=== PATIENT | male | born 1935 | race Asian ===

== ENCOUNTER 2019-09-16 05:07 | Day surgery (SDC) | payer OTHER ==
[2019-09-16 11:43] VITALS: BMI 23.6
--- NOTE | 2019-09-16 12:28 | HP ---
History & Physical Update - History History: No Change - Physical Physical: No Change - Assessment Assessment: No Change - Plan Plan: No Change
--- NOTE | 2019-09-16 12:30 | OP ---
Operative Note - Note: Operative Date: 09/16/19 Pre-Operative Diagnosis: BPH w LUTS Operation: bipolar TURP Findings: BPH Post-Operative Diagnosis: Same as Pre-op Surgeon: Tom Valera Anesthesiologist/STRAIGHT EDGER: Angelina Churchill Anesthesia: General Specimens Removed: prostate tissue Estimated Blood Loss (mls): 50 Drains & Tubes with Location: [address] Operative Report Dictated: Yes
[2019-09-16] MEDS ORDERED: MIDAZOLAM HCL 2 MG/2 ML SINGLE DOSE VIAL ONE (12:45)
[2019-09-16] MEDS ORDERED: DEXTROSE 5%-0.45% SALINE 1,000 ML IV SCH (13:15)
[2019-09-16] MEDS ORDERED: LIDOCAINE HCL/PF 2% SDV 5ML VIAL ONE (13:17)
[2019-09-16] MEDS ORDERED: ETOMIDATE 20 MG/10 ML AMPUL IVPUSH ONE (13:21)
[2019-09-16] MEDS ORDERED: EPHEDRINE SULFATE/0.9% NACL/PF 50 MG/10 ML SYRINGE NR ONE (13:23)
[2019-09-16] MEDS ORDERED: DEXAMETHASONE SOD PHOSPHATE 4 MG/1 ML VIAL ONE (13:47)
[2019-09-16] MEDS ORDERED: ONDANSETRON 4 MG/2 ML VIAL IVPUSH PRN (14:46)
[2019-09-16] MEDS ORDERED: LACTATED RINGERS SOLUTION 1,000 ML IV SCH (15:00)
[2019-09-16] MEDS ORDERED: CEFAZOLIN 1 GM in DEXTROSE 5%-WATER - 50 ML IVPB SCH (18:00)
--- NOTE | 2019-09-16 21:09 | OP ---
DATE OF OPERATION: 09/16/2019 PREOPERATIVE DIAGNOSIS: Benign prostatic hypertrophy with lower urinary tract symptoms. POSTOPERATIVE DIAGNOSIS: Benign prostatic hypertrophy with lower urinary tract symptoms. PROCEDURE: Bipolar transurethral resection of the prostate. SURGEON: Cristofer Valera MD ELECTRICAL POWER ENGINEER: None. ANESTHESIA: General via laryngeal mask. ANESTHESIOLOGIST: RICKY Herrera SPECIMEN: Prostate tissue. CULTURES: None. DRAINS: A 24-Portuguese 3-way Garcia catheter, 30-mL balloon. ESTIMATED BLOOD LOSS: 50 mL. COMPLICATIONS: None. DESCRIPTION OF PROCEDURE: Patient was brought in the operating room, placed on the operating table in supine position. After administration of general anesthesia via laryngeal mask, intravenous antibiotics were administered. Sequential compression devices were placed. Patient placed in dorsal lithotomy position. Genitals were prepped and draped in the usual sterile manner. The urethral meatus was dilated with curved sound from a size 22 to 30-Portuguese. Now the 26-Portuguese resectoscope sheath with visualizing obturator was inserted into the bladder under direct vision. Anterior urethra was normal. The prostatic urethra demonstrated bladder outlet obstruction. The bladder was entered and thoroughly inspected. There were no foreign bodies, tumors, stones, or inflammation. Both ureteral orifices were in their usual location with clear efflux bilaterally. Now the working element Thomson bipolar resectoscope was inserted. TURP was performed in the standard fashion by first creating a groove in the left lateral lobe at the 2 o'clock position from the area of the bladder neck, the verumontanum, down to the level of the capsular fibers. Left lateral lobe was then sequentially resected from the 2 to the 6 o'clock position from the area of the bladder neck to the verumontanum, down to the level of the capsular fibers. In a similar manner, the right lateral lobe of the prostate was resected. The roof and the floor of the prostate were also resected. All obstructive tissue from the area of the bladder neck to the verumontanum was resected down to capsular fibers. The UroLift implants were encountered and removed as well. Now all resected prostatic tissue and the UroLift devices were all removed from the bladder using the Angela syringe. Hemostasis was assured with electrocautery. The button was inserted and the entire prostatic bed was cauterized for hemostasis. Once hemostasis was assured and all resected tissue removed from the bladder, the bladder was left full and the instrument removed. A 24-Portuguese 3-way Garcia catheter was inserted in the bladder, 30 mL placed in the balloon, was placed on continuous bladder irrigation, return blood tinged. Tolerated the procedure well, transferred to the recovery room in stable condition. CRISTOFER VALERA M.D. [id number]
[2019-09-16] MEDS: ACETAMINOPHEN 325 MG TABLET (FP) PO PRN (21:34)
[2019-09-16] MEDS: oxyCODONE HCL 5 MG TABLET PO PRN (21:35)
[2019-09-16] MEDS ORDERED: ATORVASTATIN CA 10 MG TABLET (FP) PO SCH (22:00)
[2019-09-16] MEDS ORDERED: LORazepam 1 MG TABLET PO PRN (22:59)
[2019-09-17 07:59] LABS: BLOOD UREA NITROGEN 11.6 mg/dL (7-18); CALCIUM 8.6 mg/dL (8.5-10.1); CREATININE 0.9 mg/dL (0.55-1.3); POTASSIUM 4.1 mmol/L (3.5-5.1)
[2019-09-17 08:01] LABS: HEMATOCRIT 38.4 % (35.4-49); HEMOGLOBIN 12.3 GM/dL (11.7-16.9); MCH 30.1 pg (25.7-33.7); MCHC 32.1 g/dl (32.0-35.9); MEAN CELL VOLUME 93.9 fl (80-96); PLATELET COUNT 166 K/MM3 (134-434); RBC 4.09 M/mm3 (4.00-5.60); RDW 15.5 % (11.9-15.9); WHITE BLOOD COUNT 10.1 K/mm3 (4.0-10.0)
[2019-09-17 09:16] VITALS: BP 119/69; PULSE 76; TEMP 98.4
--- NOTE | 2019-09-17 09:58 | PN ---
Progress Note (short form) - Note Progress Note: Anesthesia Post op/pain Pt seen and examined S:Alert and awake, comfortable O: Vital Signs Temperature 98.4 F 09/17/19 09:16 Pulse Rate 76 09/17/19 09:16 Respiratory Rate 16 09/17/19 09:16 Blood Pressure 119/69 09/17/19 09:16 O2 Sat by Pulse Oximetry (%) 98 09/17/19 09:16 CBC, BMP 09/17/19 06:38 09/17/19 06:38 A/P s/p TURP Doing well post op Continue current care Joss Hannah M.D.
[2019-09-17] MEDS ORDERED: amLODIPine BESYLATE 2.5 MG TABLET (FP) PO SCH (10:00)
[2019-09-17] MEDS ORDERED: metoPROLOL SUCCINATE 25 MG TAB.SR.24H (FP) PO SCH (10:00)
[2019-09-17] MEDS ORDERED: ISOSORBIDE MONONITRATE 30 MG TAB.SR.24H (FP) PO SCH (10:00)
[2019-09-17] MEDS: oxyCODONE HCL 5 MG TABLET PO PRN (10:55)
[2019-09-17] MEDS: ACETAMINOPHEN 325 MG TABLET (FP) PO PRN (10:55)
--- NOTE | 2019-09-19 11:03 | PATH ---
Surgical Pathology Report Patient Name: KATHLEEN YARBROUGH Med. Rec. #: [id number] /Age/Gender: 1935 (Age: 84) / M Account: [id number] Location: AMBULATORY SURG Taken: 09/16/2019 Received: 09/17/2019 Reported: 09/19/2019 Physicians: Tom Valera M.D. Specimen(s) Received PROSTATE CHIPS Clinical History BPH Final Diagnosis PROSTATE CHIPS, TRANSURETHRAL RESECTION OF PROSTATE: BENIGN PROSTATIC TISSUE WITH FOCAL CHRONIC INFLAMMATION, FOCAL CYSTIC CHANGES, AND STROMAL HYPERPLASIA. CHRONIC CYSTITIS, CYSTITIS CYSTICA AND GLANDULARIS. Electronically Signed Joslyn Sands M.D. Gross Description Received in formalin labeled "prostate chips" is a 5 g, 4 x 4 x 1 cm aggregate of yang, firm to rubbery portions of tissue, consistent with prostate chips. Disability Hearing Officer portions are submitted in 3 cassettes.
== END 2019-09-17 11:43 | disposition home or self-care (01) ==
LOC: JASUSAT 05:07 → J8W 16:52 → JASUSAT 09-17 11:43
PROVIDERS: ATTEND Urology
PROC: 0VT08ZZ Resection of Prostate, Via Natural or Artificial Opening Endoscopic (ICD-10-PCS; principal; 2019-09-16 13:00)
DX: N40.1 Benign prostatic hyperplasia with lower urinary tract symptoms (principal); R39.12 Poor urinary stream
CPT/HCPCS: 36415; 80048; 85027; 88305-TC; 94760